=== PATIENT | female | born 1965 | race African-American/Black ===

== ENCOUNTER 2017-12-10 13:01 | Emergency (ER) | payer OTHER ==
[~2017-12-10] VITALS: Ht 172.7 cm; Wt 59.1 kg
[2017-12-10 15:33] VITALS: BP 113/72
== END 2017-12-10 15:52 | disposition home or self-care (01) ==
LOC: EMS 13:02
DX: R53.1 Weakness (principal); M79.641 Pain in right hand
CPT/HCPCS: 99283

== ENCOUNTER 2018-03-28 09:12 | Emergency (ER) | payer OTHER ==
[~2018-03-28] VITALS: Ht 172.7 cm; Wt 59.1 kg
[2018-03-28] MEDS ORDERED: IBUPROFEN 600 MG TABLET PO ONE (10:15)
[2018-03-28] MEDS ORDERED: ACETAMINOPHEN 500 MG TABLET PO ONE (10:15)
[2018-03-28 11:24] VITALS: BP 119/88
== END 2018-03-28 14:19 | disposition home or self-care (01) ==
LOC: EMS 09:13
DX: G89.29 Other chronic pain (principal); M79.621 Pain in right upper arm; R07.89 Other chest pain
CPT/HCPCS: 71101; 99284

== ENCOUNTER 2025-03-22 10:59 | Emergency (ER) | payer MEDICAID, OTHER ==
[~2025-03-22] VITALS: Ht 172.7 cm; Wt 59.1 kg
[2025-03-22 11:31] VITALS: BP 125/94; PULSE 79; RESP 18; TEMP 97.7; O2SAT 100
[2025-03-22] MEDS ORDERED: METH-659 PO (12:18)
[2025-03-22] MEDS: KETOROLAC TROMETHAMINE 30 MG/ML VIAL IM ONE (12:37)
[2025-03-22] MEDS: LIDOCAINE 5% TRANSDERMAL PATCH TD ONE (12:37)
== END 2025-03-22 13:00 | disposition home or self-care (01) ==
LOC: EMS 11:07
DX: G89.29 Other chronic pain (principal); M54.50 Low back pain, unspecified; Z79.899 Other long term (current) drug therapy
CPT/HCPCS: 99283; J1885